=== PATIENT | male | born 1975 | race Caucasian/White ===

== ENCOUNTER 2021-08-02 14:16 | Inpatient (IN) | payer OTHER ==
[2021-08-02] MEDS ORDERED: SODIUM CHLORIDE 0.9% 500 ML INFUS.BAG IV ONE (15:17)
[2021-08-02] MEDS ORDERED: VANCOMYCIN 1 GM in D5W (PRE-DOCKED) 1,000 MG/250 ML IVPB ONE (15:17)
[2021-08-02] MEDS ORDERED: VANCOMYCIN 1 GRAM (PRE-DOCKED) 1,000 MG/250 ML BAG IVPB ONE (15:29)
[2021-08-02 17:11] LABS: BASO % 0.7 % (0-2.0); EOS % 2.6 % (0-4.5); HEMATOCRIT 40.6 % (35.4-49); HEMOGLOBIN 13.7 GM/dL (11.7-16.9); LYMPH % 36.8 % (8-40); MCH 30.4 pg (25.7-33.7); MCHC 33.8 g/dl (32.0-35.9); MEAN CELL VOLUME 89.8 fl (80-96); MEAN PLT VOLUME 7.6 fl (7.5-11.1); MONO % 9.4 % (3.8-10.2); NEUT % 50.5 % (42.8-82.8); PLATELET COUNT 214 10^3/uL (134-434); RBC 4.53 M/mm3 (4.00-5.60); RDW 14.3 % (11.9-15.9); WHITE BLOOD COUNT 6.6 K/mm3 (4.0-10.0)
[2021-08-02 17:26] LABS: INR 1.07 (0.83-1.09); PROTHROMBIN TIME (PATIENT) 12.5 SEC (9.7-13.0)
[2021-08-02 17:29] LABS: ACTIVATED PTT 29.1 SECONDS (25.2-36.5)
[2021-08-02 17:46] LABS: ALBUMIN 4.4 g/dl (3.4-5.0); BLOOD UREA NITROGEN 10.5 mg/dL (7-18); CALCIUM 9.9 mg/dL (8.5-10.1)
[2021-08-02 17:49] LABS: CREATININE 1.1 mg/dL (0.55-1.3)
[2021-08-02 17:51] LABS: BILIRUBIN,TOTAL 0.5 mg/dL (0.2-1)
[2021-08-02] MEDS ORDERED: APIXABAN 5 MG TABLET PO ONE (23:10)
[2021-08-03] MEDS ORDERED: APIXABAN 5 MG TABLET ONE (00:40)
[2021-08-03] MEDS ORDERED: VANCOMYCIN 500 MG in DEXTROSE 5%-WATER - 100 ML IVPB ONE (01:14)
[2021-08-03 01:24] LABS: URINE APPEARANCE CLEAR; URINE BILIRUBIN NEGATIVE (NEGATIVE); URINE COLOR YELLOW; URINE GLUCOSE (UA) NEGATIVE (NEGATIVE); URINE KETONE 1+ (NEGATIVE); URINE LEUK ESTERASE NEGATIVE (NEGATIVE); URINE NITRITE NEGATIVE (NEGATIVE); URINE PROTEIN NEGATIVE (NEGATIVE); URINE UROBILINOGEN 0.2 mg/dL (0.2-1.0)
[2021-08-03] MEDS ORDERED: VANCOMYCIN 1,000 MG in DEXTROSE 5%-WATER - 250 ML IVPB SCH ×2 (03:00→16:00)
[2021-08-03] MEDS ORDERED: VANCOMYCIN 1 GRAM (PRE-DOCKED) 1,000 MG/250 ML BAG IVPB SCH (03:15)
[2021-08-03] MEDS ORDERED: QUEtiapine FUMARATE 300 MG TABLET PO SCH ×2 (03:41→22:00)
[2021-08-03] MEDS ORDERED: DIVALPROEX SODIUM 500 MG TABLET E.C. PO SCH ×2 (03:41→22:00)
[2021-08-03] MEDS ORDERED: risperiDONE 0.5 MG TABLET PO SCH (03:41)
[2021-08-03] MEDS ORDERED: VANCOMYCIN 1 GRAM (PRE-DOCKED) 1,000 MG/250 ML BAG IVPB ONE (03:43)
[2021-08-03] MEDS ORDERED: risperiDONE 0.5 MG TABLET ONE (04:18)
[2021-08-03] MEDS ORDERED: DIVALPROEX SODIUM 500 MG TABLET E.C. ONE (04:18)
[2021-08-03] MEDS ORDERED: DIVALPROEX SODIUM 500 MG TABLET E.C. PO ONE (05:07)
[2021-08-03] MEDS ORDERED: risperiDONE 0.5 MG TABLET PO ONE (05:07)
[2021-08-03] MEDS ORDERED: risperiDONE 2 MG TABLET PO ONE (05:07)
[2021-08-03] MEDS ORDERED: QUEtiapine FUMARATE 300 MG TABLET PO ONE (05:08)
[2021-08-03 05:50] VITALS: BMI 31.2
[2021-08-03 09:16] LABS: BASO % 0.8 % (0-2.0); EOS % 3.6 % (0-4.5); HEMOGLOBIN 12.3 GM/dL (11.7-16.9); LYMPH % 48.9 % (8-40); MCH 30.7 pg (25.7-33.7); MCHC 34.3 g/dl (32.0-35.9); MEAN CELL VOLUME 89.6 fl (80-96); MEAN PLT VOLUME 7.6 fl (7.5-11.1); MONO % 9.4 % (3.8-10.2); NEUT % 37.3 % (42.8-82.8); PLATELET COUNT 180 10^3/uL (134-434); RBC 4.02 M/mm3 (4.00-5.60); WHITE BLOOD COUNT 5.9 K/mm3 (4.0-10.0)
[2021-08-03 09:30] LABS: BLOOD UREA NITROGEN 11.4 mg/dL (7-18); CALCIUM 8.7 mg/dL (8.5-10.1); MAGNESIUM 2.2 mg/dL (1.8-2.4); PHOSPHOROUS 3.8 mg/dL (2.5-4.9)
[2021-08-03 09:31] LABS: BILIRUBIN,TOTAL 0.7 mg/dL (0.2-1); TOT PROT 6.5 g/dl (6.4-8.2)
[2021-08-03 09:41] LABS: ALBUMIN 3.5 g/dl (3.4-5.0)
[2021-08-03] MEDS ORDERED: PT OWN MED DRAWER 7, Y5N ONE (09:52)
[2021-08-03] MEDS: NICOTINE 7 MG/24 HOURS TOPICAL PATCH TD SCH (09:58)
[2021-08-03] MEDS ORDERED: PNEUMOC 13-VAL CONJ-DIP CRM/PF 0.5 ML DISP.SYRIN IM ONE (10:00)
[2021-08-03] MEDS ORDERED: ceFAZolin SODIUM 1 GM VIAL ONE ×3 (13:57→23:40)
[2021-08-03] MEDS ORDERED: DEXTROSE 5%-WATER - 50 ML IVPB ONE ×3 (13:57→23:41)
[2021-08-03] MEDS: CEFAZOLIN 1 GM in DEXTROSE 5%-WATER - 1 GM/50 ML IVPB IVPB SCH ×2 (14:00→18:31)
[2021-08-03] MEDS ORDERED: HEPARIN NA (PORCINE) 5,000 UNITS/ML 1ML VIAL IVPUSH PRN (16:42)
[2021-08-03] MEDS: HEPARIN INFUSION - 25,000 UNITS/500 ML INFUS.BAG IVPB SCH (17:58)
[2021-08-03] MEDS ORDERED: QUEtiapine FUMARATE 100 MG TABLET (FP) ONE (20:11)
[2021-08-03] MEDS ORDERED: risperiDONE 2 MG TABLET PO SCH (22:00)
[2021-08-03] MEDS: risperiDONE 0.5 MG TABLET PO SCH (23:07)
[2021-08-03] MEDS: DIVALPROEX SODIUM 500 MG TABLET E.C. PO SCH (23:07)
[2021-08-03] MEDS: QUEtiapine FUMARATE 300 MG TABLET PO SCH (23:08)
[2021-08-04] MEDS: CEFAZOLIN 1 GM in DEXTROSE 5%-WATER - 1 GM/50 ML IVPB IVPB SCH ×3 (01:28→17:53)
[2021-08-04] MEDS: HEPARIN NA (PORCINE) 5,000 UNITS/ML 1ML VIAL IVPUSH PRN (01:31)
[2021-08-04] MEDS ORDERED: DEXTROSE 5%-WATER - 50 ML IVPB ONE ×2 (09:52→17:49)
[2021-08-04] MEDS ORDERED: PT OWN MED DRAWER 7, Y5N ONE (09:52)
[2021-08-04] MEDS ORDERED: ceFAZolin SODIUM 1 GM VIAL ONE ×2 (09:52→17:49)
[2021-08-04] MEDS: NICOTINE 7 MG/24 HOURS TOPICAL PATCH TD SCH (10:11)
[2021-08-04 10:24] LABS: BASO % 0.7 % (0-2.0); EOS % 2.6 % (0-4.5); HEMOGLOBIN 13.2 GM/dL (11.7-16.9); LYMPH % 34.9 % (8-40); MCH 30.6 pg (25.7-33.7); MCHC 33.9 g/dl (32.0-35.9); MEAN CELL VOLUME 90.3 fl (80-96); MONO % 9.3 % (3.8-10.2); NEUT % 52.5 % (42.8-82.8); PLATELET COUNT 198 10^3/uL (134-434); RBC 4.32 M/mm3 (4.00-5.60); RDW 14.1 % (11.9-15.9); WHITE BLOOD COUNT 8.2 K/mm3 (4.0-10.0)
[2021-08-04 10:52] LABS: ALBUMIN 3.6 g/dl (3.4-5.0); CALCIUM 8.9 mg/dL (8.5-10.1)
[2021-08-04 10:53] LABS: BLOOD UREA NITROGEN 11.1 mg/dL (7-18); MAGNESIUM 2.4 mg/dL (1.8-2.4)
[2021-08-04 10:57] LABS: BILIRUBIN,TOTAL 0.6 mg/dL (0.2-1); TOT PROT 6.8 g/dl (6.4-8.2)
[2021-08-04] MEDS: HEPARIN INFUSION - 25,000 UNITS/500 ML INFUS.BAG IVPB SCH (15:49)
[2021-08-04] MEDS ORDERED: QUEtiapine FUMARATE 100 MG TABLET (FP) ONE (21:29)
[2021-08-04] MEDS: DIVALPROEX SODIUM 500 MG TABLET E.C. PO SCH (21:34)
[2021-08-04] MEDS: QUEtiapine FUMARATE 300 MG TABLET PO SCH (21:34)
[2021-08-04] MEDS: risperiDONE 0.5 MG TABLET PO SCH (21:35)
[2021-08-05] MEDS ORDERED: ceFAZolin SODIUM 1 GM VIAL ONE ×3 (01:38→17:50)
[2021-08-05] MEDS ORDERED: DEXTROSE 5%-WATER - 50 ML IVPB ONE ×3 (01:39→17:50)
[2021-08-05] MEDS: CEFAZOLIN 1 GM in DEXTROSE 5%-WATER - 1 GM/50 ML IVPB IVPB SCH ×3 (02:47→17:57)
[2021-08-05 08:06] LABS: BASO % 0.4 % (0-2.0); EOS % 2.8 % (0-4.5); HEMOGLOBIN 13.1 GM/dL (11.7-16.9); LYMPH % 39.7 % (8-40); MCHC 33.5 g/dl (32.0-35.9); MEAN CELL VOLUME 89.6 fl (80-96); MEAN PLT VOLUME 7.8 fl (7.5-11.1); MONO % 8.4 % (3.8-10.2); NEUT % 48.7 % (42.8-82.8); PLATELET COUNT 200 10^3/uL (134-434); RBC 4.35 M/mm3 (4.00-5.60); RDW 13.8 % (11.9-15.9); WHITE BLOOD COUNT 6.6 K/mm3 (4.0-10.0)
[2021-08-05 08:20] LABS: BLOOD UREA NITROGEN 9.6 mg/dL (7-18)
[2021-08-05 08:21] LABS: ALBUMIN 3.6 g/dl (3.4-5.0); CALCIUM 8.8 mg/dL (8.5-10.1); MAGNESIUM 2.4 mg/dL (1.8-2.4)
[2021-08-05 08:23] LABS: CREATININE 0.9 mg/dL (0.55-1.3)
[2021-08-05 08:25] LABS: BILIRUBIN,TOTAL 0.7 mg/dL (0.2-1); TOT PROT 6.8 g/dl (6.4-8.2)
[2021-08-05] MEDS ORDERED: PT OWN MED DRAWER 7, Y5N ONE ×4 (08:47→14:08)
[2021-08-05] MEDS: HEPARIN NA (PORCINE) 5,000 UNITS/ML 1ML VIAL IVPUSH PRN (08:56)
[2021-08-05] MEDS: NICOTINE 7 MG/24 HOURS TOPICAL PATCH TD SCH (11:19)
[2021-08-05] MEDS: HEPARIN INFUSION - 25,000 UNITS/500 ML INFUS.BAG IVPB SCH ×2 (14:28→17:05)
[2021-08-05] MEDS ORDERED: QUEtiapine FUMARATE 100 MG TABLET (FP) ONE (22:11)
[2021-08-05] MEDS: risperiDONE 0.5 MG TABLET PO SCH (22:15)
[2021-08-05] MEDS: QUEtiapine FUMARATE 300 MG TABLET PO SCH (22:15)
[2021-08-05] MEDS: DIVALPROEX SODIUM 500 MG TABLET E.C. PO SCH (22:15)
[2021-08-06] MEDS ORDERED: ceFAZolin SODIUM 1 GM VIAL ONE ×3 (01:29→17:37)
[2021-08-06] MEDS ORDERED: DEXTROSE 5%-WATER - 50 ML IVPB ONE ×3 (01:30→17:37)
[2021-08-06] MEDS: CEFAZOLIN 1 GM in DEXTROSE 5%-WATER - 1 GM/50 ML IVPB IVPB SCH ×3 (01:46→18:09)
[2021-08-06 08:52] LABS: BASO % 0.9 % (0-2.0); EOS % 3.9 % (0-4.5); HEMATOCRIT 41.8 % (35.4-49); HEMOGLOBIN 13.9 GM/dL (11.7-16.9); LYMPH % 49.5 % (8-40); MCH 30.1 pg (25.7-33.7); MCHC 33.3 g/dl (32.0-35.9); MEAN CELL VOLUME 90.3 fl (80-96); MEAN PLT VOLUME 7.9 fl (7.5-11.1); MONO % 9.6 % (3.8-10.2); NEUT % 36.1 % (42.8-82.8); PLATELET COUNT 188 10^3/uL (134-434); RBC 4.63 M/mm3 (4.00-5.60); RDW 14.1 % (11.9-15.9)
[2021-08-06 09:18] LABS: CALCIUM 8.9 mg/dL (8.5-10.1)
[2021-08-06 09:19] LABS: ALBUMIN 3.7 g/dl (3.4-5.0); BLOOD UREA NITROGEN 9.1 mg/dL (7-18); MAGNESIUM 2.5 mg/dL (1.8-2.4)
[2021-08-06 09:20] LABS: BILIRUBIN,TOTAL 0.4 mg/dL (0.2-1)
[2021-08-06 09:22] LABS: TOT PROT 7.2 g/dl (6.4-8.2)
[2021-08-06] MEDS ORDERED: PT OWN MED DRAWER 7, Y5N ONE ×2 (10:06→20:58)
[2021-08-06] MEDS: NICOTINE 7 MG/24 HOURS TOPICAL PATCH TD SCH (10:11)
[2021-08-06] MEDS ORDERED: LIDOCAINE HCL 1%, 10 MG/ML (20ML VIAL) ONE (12:05)
[2021-08-06] MEDS ORDERED: MIDAZOLAM HCL 2 MG/2 ML SINGLE DOSE VIAL ONE (12:27)
[2021-08-06] MEDS ORDERED: KETOROLAC TROMETHAMINE 30 MG/1 ML VIAL ONE (12:28)
[2021-08-06] MEDS ORDERED: LIDOCAINE HCL 1%, 10 MG/ML (20ML VIAL) NR ONE (12:37)
[2021-08-06] MEDS ORDERED: PROPOFOL 20 ML ONE (12:37)
[2021-08-06] MEDS ORDERED: PROMETHAZINE HCL 25 MG/1 ML VIAL IVPUSH PRN (12:59)
[2021-08-06] MEDS ORDERED: ONDANSETRON 4 MG/2 ML VIAL IVPUSH PRN (12:59)
[2021-08-06] MEDS ORDERED: LACTATED RINGERS SOLUTION 1,000 ML IV SCH (13:00)
[2021-08-06] MEDS ORDERED: HEPARIN NA (PORCINE) 5,000 UNITS/ML 1ML VIAL IVPUSH PRN ×2 (13:16)
[2021-08-06] MEDS ORDERED: HEPARIN INFUSION - 25,000 UNITS/500 ML INFUS.BAG IVPB SCH (13:16)
[2021-08-06] MEDS: oxyCODONE HCL 5 MG TABLET PO PRN (19:43)
[2021-08-06] MEDS: ACETAMINOPHEN 325 MG TABLET (FP) PO PRN (19:44)
[2021-08-06] MEDS ORDERED: QUEtiapine FUMARATE 100 MG TABLET (FP) ONE (20:56)
[2021-08-06] MEDS: DIVALPROEX SODIUM 500 MG TABLET E.C. PO SCH (21:33)
[2021-08-06] MEDS: QUEtiapine FUMARATE 300 MG TABLET PO SCH (21:33)
[2021-08-06] MEDS: risperiDONE 1 MG TABLET PO SCH (21:34)
[2021-08-06] MEDS: APIXABAN 5 MG TABLET PO SCH (21:34)
[2021-08-06] MEDS ORDERED: APIXABAN 5 MG TABLET PO SCH (22:00)
[2021-08-07] MEDS ORDERED: DEXTROSE 5%-WATER - 50 ML IVPB ONE ×3 (01:08→16:13)
[2021-08-07] MEDS ORDERED: ceFAZolin SODIUM 1 GM VIAL ONE ×3 (01:08→16:12)
[2021-08-07] MEDS: CEFAZOLIN 1 GM in DEXTROSE 5%-WATER - 1 GM/50 ML IVPB IVPB SCH ×3 (01:11→17:10)
[2021-08-07] MEDS: oxyCODONE HCL 5 MG TABLET PO PRN ×3 (04:57→22:29)
[2021-08-07] MEDS: ACETAMINOPHEN 325 MG TABLET (FP) PO PRN ×3 (04:58→22:29)
[2021-08-07] MEDS: NICOTINE 7 MG/24 HOURS TOPICAL PATCH TD SCH ×2 (10:09→10:56)
[2021-08-07] MEDS: APIXABAN 5 MG TABLET PO SCH ×2 (10:51→21:02)
[2021-08-07] MEDS ORDERED: QUEtiapine FUMARATE 100 MG TABLET (FP) ONE (20:51)
[2021-08-07] MEDS: risperiDONE 1 MG TABLET PO SCH (21:02)
[2021-08-07] MEDS: QUEtiapine FUMARATE 300 MG TABLET PO SCH (21:02)
[2021-08-07] MEDS: DIVALPROEX SODIUM 500 MG TABLET E.C. PO SCH (21:03)
[2021-08-08] MEDS ORDERED: DEXTROSE 5%-WATER - 50 ML IVPB ONE ×3 (00:32→15:33)
[2021-08-08] MEDS ORDERED: ceFAZolin SODIUM 1 GM VIAL ONE ×3 (00:32→15:33)
[2021-08-08] MEDS: CEFAZOLIN 1 GM in DEXTROSE 5%-WATER - 1 GM/50 ML IVPB IVPB SCH ×3 (02:18→17:08)
[2021-08-08 08:20] LABS: HEMATOCRIT 40.4 % (35.4-49); HEMOGLOBIN 13.6 GM/dL (11.7-16.9); MCH 30.6 pg (25.7-33.7); MCHC 33.6 g/dl (32.0-35.9); MEAN PLT VOLUME 8.2 fl (7.5-11.1); PLATELET COUNT 177 10^3/uL (134-434); RBC 4.43 M/mm3 (4.00-5.60); RDW 13.9 % (11.9-15.9); WHITE BLOOD COUNT 6.1 K/mm3 (4.0-10.0)
[2021-08-08] MEDS: APIXABAN 5 MG TABLET PO SCH (09:32)
[2021-08-08] MEDS: NICOTINE 7 MG/24 HOURS TOPICAL PATCH TD SCH (09:33)
[2021-08-08] MEDS: oxyCODONE HCL 5 MG TABLET PO PRN (11:44)
[2021-08-08] MEDS ORDERED: POLYETHYLENE GLYCOL (HEALTHYLAX) 3350 17 GM PACKET PO ONE (13:47)
[2021-08-08] MEDS ORDERED: DOCUSATE SODIUM 100 MG CAPSULE (FP) PO SCH (14:00)
[2021-08-08 15:27] VITALS: BP 112/63; PULSE 63; TEMP 97.6
== END 2021-08-08 20:10 | disposition home or self-care (01) | DRG 571 ==
LOC: JER 14:16 → JERBED 18:27 → J8W 08-03 05:08
PROVIDERS: ADMIT Internal Medicine; ATTEND Nurse Practitioner Family
PROC: 0JBQ0ZZ Excision of Right Foot Subcutaneous Tissue and Fascia, Open Approach (ICD-10-PCS; 2021-08-06)
PROC: 0JCQ0ZZ Extirpation of Matter from Right Foot Subcutaneous Tissue and Fascia, Open Approach (ICD-10-PCS; principal; 2021-08-06 11:30)
DX: S90.851A Superficial foreign body, right foot, initial encounter (principal); I96 Gangrene, not elsewhere classified; L97.519 Non-pressure chronic ulcer of other part of right foot with unspecified severity; F31.9 Bipolar disorder, unspecified; E78.5 Hyperlipidemia, unspecified; Z72.0 Tobacco use; I45.10 Unspecified right bundle-branch block; E66.9 Obesity, unspecified; L08.9 Local infection of the skin and subcutaneous tissue, unspecified; Z68.31 Body mass index [BMI] 31.0-31.9, adult; X58.XXXA Exposure to other specified factors, initial encounter; Y93.89 Activity, other specified; Y92.9 Unspecified place or not applicable; Y99.9 Unspecified external cause status
CPT/HCPCS: 36415; 73630-TC-RT-FY; 80053; 81003; 83605; 83735; 84100; 85025; 85027; 85610; 85651; 85730; 86140; 86850; 86900; 86901; 87040; 88305-TC; 90670; 93005; 93010; 94760; 97116-GP; 97161-GP; 99285-25; C9803; G0463-25; J1644; J2794; U0003; U0005